=== PATIENT | male | born 1960 | race African-American/Black ===

== ENCOUNTER 2017-08-07 04:49 | Emergency (ER) | payer MEDICAID ==
[~2017-08-07] VITALS: Ht 167.6 cm; Wt 68.9 kg
[2017-08-07 06:24] VITALS: BP 165/100
[2017-08-07] MEDS ORDERED: KETOROLAC TROMETH 60MG/2ML VIAL IM ONE (06:45)
[2017-08-07] MEDS ORDERED: cefTRIAXone SOD 1,000 MG VL IM ONE (06:45)
== END 2017-08-07 07:19 | disposition home or self-care (01) ==
LOC: ER 04:51 → EDBD 04:51 → ER 07:18
DX: K04.7 Periapical abscess without sinus (principal); F17.210 Nicotine dependence, cigarettes, uncomplicated
CPT/HCPCS: 96372; 99284; J0696; J1885